=== PATIENT | male | born 1960 | race Caucasian/White ===

== ENCOUNTER 2017-02-25 13:54 | Emergency (ER) | payer BC, OTHER ==
[~2017-02-25] VITALS: Ht 172.7 cm; Wt 91.6 kg
[~2017-02-25 13:54] MED LIST: INHAILER; tylenol; z-pack
[2017-02-25 13:55] VITALS: BP_SYST 145
[2017-02-25 14:21] LABS: BILIRUBIN,URINE NEGATIVE (NEGATIVE); BLOOD, URINE 3+ (NEGATIVE); CLARITY/URINE HAZY (CLEAR); COLOR,URINE YELLOW (YELLOW); GLUCOSE,URINE NEGATIVE (NEGATIVE); KETONES,URINE NEGATIVE (NEGATIVE); LEUKOCYTE ESTERASE ,URINE TRACE (NEGATIVE); NITRITE, URINE NEGATIVE (NEGATIVE); PROTEIN URINE TRACE (NEGATIVE); UROBILINOGEN,URINE 0.2 (0.2-1.0)
[2017-02-25] MEDS ORDERED: NACL 0.9% 1,000 ML IV ONE ×2 (14:30→15:45)
[2017-02-25] MEDS ORDERED: KETOROLAC TROMETHAMINE 30 MG VIAL IVP ONE (14:30)
[2017-02-25 14:38] LABS: BACTERIA,URINE FEW /HPF (None Seen); RBC,URINE 50-80 /HPF (0-3)
[2017-02-25 14:39] LABS: MUCUS,URINE 1+ /LPF (None Seen)
[2017-02-25 14:40] LABS: BASOPHILS % (AUTO) 0.4 % (0.0-2.0); EOSINOPHILS # (AUTO) 0.2 K/uL (0.0-0.4); EOSINOPHILS % (AUTO) 1.7 % (0.0-4.0); HEMOGLOBIN 15.6 g/dL (14.0-18.0); LYMPHOCYTES % (AUTO) 18.5 % (20.5-51.5); MEAN CORPUSCULAR HEMOGLOBIN 28 pg (27-31); MEAN CORPUSCULAR HGB CONC 32 % (32-36); MEAN CORPUSCULAR VOLUME 87 fL (79.0-98.0); MONOCYTES # (AUTO) 0.6 K/uL (0.0-1.0); NEUTROPHILS # (AUTO) 7.9 K/uL (1.8-7.7); NEUTROPHILS % (AUTO) 73.4 % (40.0-70.0); PLATELET COUNT (AUTO) 327 K/uL (130-430); RED CELL DISTRIBUTION WIDTH 12.8 % (9.0-15.0); WHITE BLOOD COUNT (AUTO) 10.7 K/uL (4.8-10.8)
[2017-02-25 14:53] LABS: CALCIUM 8.9 mg/dL (8.4-11.0); CREATININE 1.26 mg/dL (0.55-1.30); POTASSIUM 3.6 mmol/L (3.5-5.1)
[2017-02-25 14:58] LABS: ALBUMIN 4.1 g/dL (3.4-4.8); TOTAL BILIRUBIN 1.3 mg/dL (0.0-1.0)
[2017-02-25] MEDS ORDERED: ONDANSETRON HCL 4 MG/2 ML VIAL IVP ONE (15:15)
[2017-02-25] MEDS ORDERED: HYDROmorphone 1 MG INJ. 1 MG/ML AMPUL IVP ONE (15:15)
[2017-02-25 15:24] VITALS: BP_SYST 138
[2017-02-25] MEDS ORDERED: cefTRIAXone 1 GM IVPB PREMIX 50 ML IV ONE (15:30)
== END 2017-02-25 17:14 | disposition home or self-care (01) ==
LOC: SED 13:54
DX: N20.0 Calculus of kidney (principal); N39.0 Urinary tract infection, site not specified; R03.0 Elevated blood-pressure reading, without diagnosis of hypertension; J45.909 Unspecified asthma, uncomplicated
CPT/HCPCS: 36415; 74176; 80053; 81000; 83690; 85025; 87040; 87086; 96365; 96375; 99285; J0696; J1170; J1885; J2405; J7030

== ENCOUNTER 2017-03-04 08:14 | Emergency (ER) | payer OTHER ==
[~2017-03-04] VITALS: Ht 172.7 cm; Wt 91.2 kg
[2017-03-04 08:19] VITALS: BP_SYST 140
[2017-03-04] MEDS ORDERED: NACL 0.9% 1,000 ML IV ONE (08:32)
[2017-03-04] MEDS ORDERED: ONDANSETRON HCL 4 MG/2 ML VIAL IVP ONE (08:45)
[2017-03-04] MEDS ORDERED: KETOROLAC TROMETHAMINE 30 MG VIAL IVP ONE (08:45)
[2017-03-04] MEDS ORDERED: MORPHINE 4 MG/ML INJ. SYRINGE IVP ONE (08:45)
[2017-03-04 09:04] LABS: BASOPHILS % (AUTO) 0.6 % (0.0-2.0); CALCIUM 8.9 mg/dL (8.4-11.0); CREATININE 1.31 mg/dL (0.55-1.30); EOSINOPHILS # (AUTO) 0.2 K/uL (0.0-0.4); HEMATOCRIT 47.3 % (36-54); HEMOGLOBIN 15.3 g/dL (14.0-18.0); LYMPHOCYTES # (AUTO) 2.2 K/uL (1.0-5.5); LYMPHOCYTES % (AUTO) 27.7 % (20.5-51.5); MEAN CORPUSCULAR HEMOGLOBIN 28 pg (27-31); MEAN CORPUSCULAR HGB CONC 32 % (32-36); MEAN CORPUSCULAR VOLUME 87 fL (79.0-98.0); MONOCYTES # (AUTO) 0.6 K/uL (0.0-1.0); MONOCYTES % (AUTO) 7.1 % (1.7-9.3); NEUTROPHILS # (AUTO) 4.8 K/uL (1.8-7.7); NEUTROPHILS % (AUTO) 61.6 % (40.0-70.0); PLATELET COUNT (AUTO) 317 K/uL (130-430); POTASSIUM 3.8 mmol/L (3.5-5.1); RED BLOOD CELL COUNT(AUTO) 5.41 MIL/uL (4.2-6.2); RED CELL DISTRIBUTION WIDTH 12.8 % (9.0-15.0); WHITE BLOOD COUNT (AUTO) 7.8 K/uL (4.8-10.8)
[2017-03-04 09:08] LABS: BILIRUBIN,URINE NEGATIVE (NEGATIVE); BLOOD, URINE 1+ (NEGATIVE); CLARITY/URINE CLEAR (CLEAR); COLOR,URINE YELLOW (YELLOW); GLUCOSE,URINE NEGATIVE (NEGATIVE); KETONES,URINE NEGATIVE (NEGATIVE); LEUKOCYTE ESTERASE ,URINE NEGATIVE (NEGATIVE); NITRITE, URINE NEGATIVE (NEGATIVE); PROTEIN URINE NEGATIVE (NEGATIVE); UROBILINOGEN,URINE 0.2 (0.2-1.0)
[2017-03-04 09:08] LABS: ALBUMIN 4.1 g/dL (3.4-4.8); TOTAL BILIRUBIN 1.1 mg/dL (0.0-1.0)
[2017-03-04 09:10] LABS: PROTHROMBIN TIME 10.3 SECS (9.5-12.5)
[2017-03-04 09:39] LABS: BACTERIA,URINE RARE /HPF (None Seen); WBC,URINE 0-3 /HPF (0-3)
[2017-03-04 09:40] LABS: MUCUS,URINE 1+ /LPF (None Seen)
[2017-03-04 12:30] VITALS: BP_SYST 140
== END 2017-03-04 12:30 | disposition home or self-care (01) ==
LOC: SED 08:14
DX: N20.0 Calculus of kidney (principal); K63.89 Other specified diseases of intestine; J45.909 Unspecified asthma, uncomplicated
CPT/HCPCS: 36415; 76770; 80053; 81000; 83690; 85025; 85610; 85730; 96361; 96374; 96375; 99285; J1885; J2270; J2405; J7030

== ENCOUNTER 2017-03-22 20:41 | Emergency (ER) | payer OTHER ==
[~2017-03-22] VITALS: Ht 172.7 cm; Wt 94.8 kg
[2017-03-22 20:45] VITALS: BP_SYST 117
[2017-03-22] MEDS ORDERED: KETOROLAC TROMETHAMINE 30 MG VIAL IVP ONE (21:00)
[2017-03-22] MEDS ORDERED: ONDANSETRON HCL 4 MG/2 ML VIAL IVP ONE (21:00)
[2017-03-22] MEDS ORDERED: NACL 0.9% 1,000 ML IV ONE (21:00)
[2017-03-22 21:18] LABS: BILIRUBIN,URINE NEGATIVE (NEGATIVE); BLOOD, URINE TRACE (NEGATIVE); CLARITY/URINE CLEAR (CLEAR); COLOR,URINE YELLOW (YELLOW); GLUCOSE,URINE NEGATIVE (NEGATIVE); KETONES,URINE NEGATIVE (NEGATIVE); LEUKOCYTE ESTERASE ,URINE NEGATIVE (NEGATIVE); NITRITE, URINE NEGATIVE (NEGATIVE); PROTEIN URINE NEGATIVE (NEGATIVE); UROBILINOGEN,URINE 0.2 (0.2-1.0)
[2017-03-22 21:35] LABS: BASOPHILS # (AUTO) 0.1 K/uL (0.0-0.2); BASOPHILS % (AUTO) 0.6 % (0.0-2.0); EOSINOPHILS # (AUTO) 0.2 K/uL (0.0-0.4); EOSINOPHILS % (AUTO) 2.2 % (0.0-4.0); HEMATOCRIT 46.6 % (36-54); HEMOGLOBIN 15.5 g/dL (14.0-18.0); LYMPHOCYTES # (AUTO) 2.1 K/uL (1.0-5.5); LYMPHOCYTES % (AUTO) 24.6 % (20.5-51.5); MEAN CORPUSCULAR HEMOGLOBIN 29 pg (27-31); MEAN CORPUSCULAR HGB CONC 33 % (32-36); MEAN CORPUSCULAR VOLUME 87 fL (79.0-98.0); MONOCYTES # (AUTO) 0.5 K/uL (0.0-1.0); MONOCYTES % (AUTO) 5.8 % (1.7-9.3); NEUTROPHILS # (AUTO) 5.6 K/uL (1.8-7.7); NEUTROPHILS % (AUTO) 66.8 % (40.0-70.0); PLATELET COUNT (AUTO) 327 K/uL (130-430); RED BLOOD CELL COUNT(AUTO) 5.37 MIL/uL (4.2-6.2); RED CELL DISTRIBUTION WIDTH 12.9 % (9.0-15.0); WHITE BLOOD COUNT (AUTO) 8.5 K/uL (4.8-10.8)
[2017-03-22 21:55] LABS: CALCIUM 8.9 mg/dL (8.4-11.0); CREATININE 1.67 mg/dL (0.55-1.30); POTASSIUM 3.3 mmol/L (3.5-5.1)
[2017-03-22 21:59] LABS: TOTAL BILIRUBIN 1.4 mg/dL (0.0-1.0)
[2017-03-22 23:07] VITALS: BP_SYST 110
== END 2017-03-22 23:07 | disposition home or self-care (01) ==
LOC: SED 20:41
DX: K46.9 Unspecified abdominal hernia without obstruction or gangrene (principal); N20.0 Calculus of kidney; J45.909 Unspecified asthma, uncomplicated
CPT/HCPCS: 36415; 74176; 80053; 81003; 83690; 85025; 96361; 96374; 96375; 99285; J1885; J2405; J7030

== ENCOUNTER 2017-03-25 10:57 | Outpatient (CLI) | payer OTHER | END 2017-03-25 21:15 | disposition home or self-care (01) | LOC: SRD 10:57 | PROVIDERS: ATTEND Urology | DX: N20.1 Calculus of ureter (principal); M47.894 Other spondylosis, thoracic region | CPT/HCPCS: 71010 ==

== ENCOUNTER 2017-05-19 09:55 | Day surgery (SDC) | payer OTHER ==
[~2017-05-19] VITALS: Ht 172.7 cm; Wt 93.0 kg
[~2017-05-19 09:55] MED LIST changes: +CEFAZOLIN SOD 1 GM/ ISO 50 ML PREMIX IV ONE
[2017-05-19] MEDS ORDERED: fentaNYL CITRATE/PF 100 MCG/2 ML AMP ONE (10:25)
[2017-05-19] MEDS ORDERED: fentaNYL CITRATE/PF 100 MCG/2 ML AMP IVP ONE (14:45)
[2017-05-19] MEDS ORDERED: MIDAZOLAM HCL 5 MG/5 ML VIAL IVP ONE (14:45)
[2017-05-19] MEDS ORDERED: ONDANSETRON HCL 4 MG/2 ML VIAL IVP ONE (14:45)
[2017-05-19] MEDS ORDERED: SEVOFLURANE 15 MIN GAS INH ONE (14:45)
[2017-05-19] MEDS ORDERED: PROPOFOL 200MG/ 20ML VIAL (DIPRIVAN) IV ONE (14:45)
[2017-05-19] MEDS ORDERED: LR 1,000 ML IV SCH (15:26)
[2017-05-19] MEDS ORDERED: MORPHINE 4 MG/ML INJ. SYRINGE IVP PRN ×3 (15:30)
[2017-05-19] MEDS ORDERED: METOCLOPRAMIDE HCL 10 MG/2 ML VIAL IVP PRN (15:30)
[2017-05-19] MEDS ORDERED: D5/0.45 NS 1,000 ML IV SCH (15:34)
[2017-05-19] MEDS ORDERED: HYDROcodone/ACETAMIN 5-325 MG TAB (NORCO/ VICODIN) PO PRN ×2 (15:45)
[2017-05-19] MEDS ORDERED: HYDROmorphone 1 MG INJ. 1 MG/ML AMPUL IVP PRN (15:45)
[2017-05-19] MEDS ORDERED: MORPHINE 4 MG/ML INJ. SYRINGE ONE (15:57)
[2017-05-19] MEDS ORDERED: MORPHINE 4 MG/ML INJ. SYRINGE IVP ONE ×2 (16:00→16:15)
[2017-05-19] MEDS ORDERED: HYDROcodone/ACETAMIN 5-325 MG TAB (NORCO/ VICODIN) ONE (17:40)
[2017-05-19 18:28] VITALS: BP_SYST 119
== END 2017-05-19 18:10 | disposition home or self-care (01) ==
LOC: SDS 09:55 → SMU 09:55 → SDS 18:10
PROVIDERS: ATTEND Colon & Rectal Surgery
DX: D17.1 Benign lipomatous neoplasm of skin and subcutaneous tissue of trunk (principal); E66.3 Overweight
CPT/HCPCS: 21933; 88304; J0690; J2250; J2270; J2405; J2704; J3010; J7120; 88305

== ENCOUNTER 2020-05-02 15:47 | Emergency (ER) | payer OTHER ==
[~2020-05-02] VITALS: Ht 172.7 cm; Wt 95.3 kg
[~2020-05-02 15:47] MED LIST changes: -CEFAZOLIN SOD 1 GM/ ISO 50 ML PREMIX IV ONE
[2020-05-02 15:57] VITALS: BP_SYST 159
[2020-05-02] MEDS ORDERED: methylPREDNISolone SOD SUCC/PF 62.5 MG/ML VIAL IVP ONE (16:00)
[2020-05-02] MEDS ORDERED: DIPHENHYDRAMINE INJ 50 MG/ML VIAL IVP ONE (16:00)
[2020-05-02] MEDS ORDERED: FAMOTIDINE PF 20 MG/2 ML VIAL IVP ONE (16:00)
[2020-05-02] MEDS ORDERED: RACEPINEPHRINE HCL 0.5 ML VIAL.NEB INH ONE (16:15)
[2020-05-02] MEDS ORDERED: DIPHENHYDRAMINE INJ 50 MG/ML VIAL ONE (16:19)
[2020-05-02] MEDS ORDERED: NACL 0.9% 1,000 ML IV ONE (17:00)
[2020-05-02 17:56] VITALS: BP_SYST 147
== END 2020-05-02 17:56 | disposition home or self-care (01) ==
LOC: SED 15:47
DX: J32.9 Chronic sinusitis, unspecified (principal); R09.81 Nasal congestion; J45.909 Unspecified asthma, uncomplicated
CPT/HCPCS: 70490; 76376; 94640; 96374; 96375; 99284; J1200; J2930; J3490

== ENCOUNTER 2020-11-28 02:27 | Emergency (ER) | payer OTHER ==
[~2020-11-28] VITALS: Ht 172.7 cm; Wt 95.3 kg
[2020-11-28 02:36] VITALS: BP_SYST 150
[2020-11-28] MEDS ORDERED: KETOROLAC TROMETHAMINE 30 MG VIAL IVP ONE (02:45)
[2020-11-28] MEDS ORDERED: NACL 0.9% 1,000 ML IV ONE (02:45)
[2020-11-28] MEDS ORDERED: TAMS-11 PO (03:02)
[2020-11-28] MEDS ORDERED: IBUP-1971 PO (03:02)
[2020-11-28 03:35] LABS: BILIRUBIN,URINE NEGATIVE (NEGATIVE); BLOOD, URINE 3+ (NEGATIVE); CLARITY/URINE SL CLOUDY (CLEAR); COLOR,URINE YELLOW (YELLOW); GLUCOSE,URINE NEGATIVE (NEGATIVE); KETONES,URINE NEGATIVE (NEGATIVE); LEUKOCYTE ESTERASE ,URINE NEGATIVE (NEGATIVE); NITRITE, URINE NEGATIVE (NEGATIVE); PROTEIN URINE NEGATIVE (NEGATIVE); UROBILINOGEN,URINE 0.2 (0.2-1.0)
[2020-11-28 03:49] LABS: BACTERIA,URINE FEW /HPF (None Seen); RBC,URINE 20-50 /HPF (0-3); WBC,URINE 0-3 /HPF (0-3)
[2020-11-28 03:50] LABS: CALCIUM OXALATE CRYSTALS,UR 0-10 /HPF (None Seen)
[2020-11-28 05:14] VITALS: BP_SYST 144
== END 2020-11-28 05:14 | disposition home or self-care (01) ==
LOC: SED 02:27
DX: R10.9 Unspecified abdominal pain (principal); J45.909 Unspecified asthma, uncomplicated; Z79.899 Other long term (current) drug therapy
CPT/HCPCS: 81000; 96361; 96374; 99283; J1885; J7030